=== PATIENT | female | born 1990 | race Two or more races ===

== ENCOUNTER 2024-08-16 07:56 | Emergency (ER) | payer OTHER ==
[~2024-08-16] VITALS: Ht 175.3 cm; Wt 77.1 kg
[2024-08-16] MEDS ORDERED: 0.9 % SODIUM CHLORIDE 1,000 ML IV STA (08:41)
[2024-08-16 10:12] LABS: HEMATOCRIT 42.6 % (36.0-45.00); HEMOGLOBIN 14.6 g/dL (12.0-15.00); MEAN CELL VOLUME 87.3 fL (80.00-100.00); MEAN CORPUSCULAR HEMOGLOBIN 29.9 pg (27.00-32.0); MEAN CORPUSCULAR HGB CONC 34.2 g/dl (32.0-36.0); PLATELET COUNT 291 K/uL (150-450); RED BLOOD COUNT 4.88 M/uL (4.00-6.00)
[2024-08-16 10:36] LABS: CALCIUM 8.5 mg/dL (8.5-10.1); CREATININE SERUM 0.62 mg/dL (0.55-1.02); GFR 108.91; POTASSIUM 4.04 mEq/L (3.5-5.1)
[2024-08-16 11:06] LABS: PH,URINE 5.5 (5.0-8.0); URINE APPEARANCE Clear; URINE BILIRRUBIN Negative (NEGATIVE); URINE BLOOD Negative; URINE COLOR Yellow; URINE GLUCOSE Negative (NEGATIVE); URINE KETONE Negative (NEGATIVE); URINE LEUKOCYTE Negative; URINE NITRATE Negative; URINE PROTEIN Negative (NEGATIVE); URINE UROBILINOGEN 0.2 E.U./dl
[2024-08-16 11:11] LABS: URINE BACTERIA 160.3 uL (0.0-1933); URINE EPITHELIAL CELLS 11.7 uL (0.0-38.8); URINE RBC 3.3 uL (0.0-20.8)
[2024-08-16 11:25] LABS: URINE CAST 0.29 uL (0.0-1.40)
== END 2024-08-16 13:57 | disposition home or self-care (01) ==
LOC: ER 07:56
PROVIDERS: Emergency Medicine
DX: K52.89 Other specified noninfective gastroenteritis and colitis (principal)